=== PATIENT | female | born 1945 | race Caucasian/White ===

== ENCOUNTER → 2017-01-04 | Outpatient (CLI) | payer MEDICARE | END | disposition home or self-care (01) | LOC: CFH 09:59 | PROVIDERS: ATTEND Internal Medicine | DX: Z12.31 Encounter for screening mammogram for malignant neoplasm of breast (principal); Z85.3 Personal history of malignant neoplasm of breast | CPT/HCPCS: 77063; G0202 ==

== ENCOUNTER 2017-02-05 10:01 | Day surgery (SDC) | payer MEDICARE ==
[2017-02-04 11:02] LABS: BLOOD UREA NITROGEN 19 mg/dL (7-18)
[~2017-02-05] VITALS: Ht 162.6 cm; Wt 59.0 kg
[~2017-02-05 10:01] MED LIST: DENO60DI IM; METO25TA91 PO
[2017-02-05] MEDS ORDERED: FENTANYL PF 100 MCG/2ML ONE (11:18)
[2017-02-05] MEDS ORDERED: MIDAZOLAM 1 MG/ML, 5ML ONE (11:18)
[2017-02-05] MEDS ORDERED: LIDOCAINE 2%, 20ML ONE (11:19)
== END 2017-02-05 14:40 | disposition home or self-care (01) ==
LOC: CACL 10:01
PROVIDERS: ATTEND Internal Medicine Cardiovascular Disease
DX: I47.2 Ventricular tachycardia (principal); I34.0 Nonrheumatic mitral (valve) insufficiency; G47.30 Sleep apnea, unspecified; M81.0 Age-related osteoporosis without current pathological fracture; Z82.49 Family history of ischemic heart disease and other diseases of the circulatory system; Z90.722 Acquired absence of ovaries, bilateral; Z90.10 Acquired absence of unspecified breast and nipple; Z85.3 Personal history of malignant neoplasm of breast; Z79.01 Long term (current) use of anticoagulants
CPT/HCPCS: 36415; 71020; 80048; 85025; 85610; 85730; 93005; 93458; C1760; C1894; J2250; J3010; J3490; Q9967

== ENCOUNTER → 2020-06-06 | Outpatient (CLI) | payer MEDICARE | END | disposition home or self-care (01) | LOC: CFH 10:25 | PROVIDERS: ATTEND Internal Medicine Cardiovascular Disease | DX: I08.8 Other rheumatic multiple valve diseases (principal); I49.9 Cardiac arrhythmia, unspecified | CPT/HCPCS: 93306 ==

== ENCOUNTER 2021-02-10 13:16 | Outpatient (CLI) | payer MEDICARE | END 2021-02-10 23:59 | disposition home or self-care (01) | LOC: CFH 13:16 | PROVIDERS: ATTEND Internal Medicine | DX: Z12.31 Encounter for screening mammogram for malignant neoplasm of breast (principal); Z12.39 Encounter for other screening for malignant neoplasm of breast; Z85.3 Personal history of malignant neoplasm of breast | CPT/HCPCS: 76641; 77063; 77067 ==

== ENCOUNTER → 2021-02-28 | Outpatient (CLI) | payer MEDICARE | END | disposition home or self-care (01) | LOC: CFH 12:48 | PROVIDERS: ATTEND Internal Medicine Cardiovascular Disease | DX: I08.8 Other rheumatic multiple valve diseases (principal); Z85.3 Personal history of malignant neoplasm of breast | CPT/HCPCS: 93306 ==

== ENCOUNTER → 2021-03-15 | Outpatient (CLI) | payer MEDICARE | END | disposition home or self-care (01) | LOC: CFH 11:16 | PROVIDERS: ATTEND Internal Medicine | DX: M81.0 Age-related osteoporosis without current pathological fracture (principal) | CPT/HCPCS: 77080 ==